=== PATIENT | male | born 1970 | race Caucasian/White ===

== ENCOUNTER 2022-10-20 00:53 | Inpatient (IN) | payer MEDICAID, OTHER ==
[~2022-10-20] VITALS: Ht 170.2 cm; Wt 171.9 kg
--- NOTE | 2022-10-20 01:10 | NUR ---
JUANY 7 FROM HOME FOR L SIDED NON- RADIATING CP 07/02 SINCE 0000.PATIENT TOOK NITRO SL AND ASA 324MG RN TRANSPORT. PATIENT IS AAOX4. ABLE TO MAKE NEEDS KNOWN. PAIN SCALE 7/10.PLACED COMFORTABLY IN BED. VITALS CHECKED.
[2022-10-20] MEDS ORDERED: KETOROLAC TROMETHAMINE INJ 30 MG/ML VIAL IV ONE (01:30)
--- NOTE | 2022-10-20 01:34 | NUR ---
IV CANNULA G20 INSERTED ON LEFT AC. BLOOD DRAWN AND SENT TO LAB
--- NOTE | 2022-10-20 01:34 | NUR ---
BLOOD DRAWN AND SENT TO LAB.
[2022-10-20] MEDS ORDERED: KETOROLAC TROMETHAMINE INJ 30 MG/ML VIAL ONE (01:37)
[2022-10-20 02:07] LABS: BASOPHILS % (AUTO) 0.2 % (0.0-2.0); HEMATOCRIT 47 % (39-51); HEMOGLOBIN 14.9 g/dL (13.5-17.5); LYMPHOCYTES # (AUTO) 1.6 K/uL (0.8-4.8); LYMPHOCYTES % (AUTO) 9.6 % (20.0-44.0); MEAN CORPUSCULAR HGB CONC 32 g/dl (31.0-36.0); MEAN CORPUSCULAR VOLUME 76 fL (80-96); MONOCYTES # (AUTO) 1.5 K/uL (0.1-1.30); MONOCYTES % (AUTO) 8.8 % (2.0-12.0); NEUTROPHILS # (AUTO) 13.6 K/uL (1.8-8.9); NEUTROPHILS % (AUTO) 80.4 % (43.0-81.0); PLATELET COUNT (AUTO) 358 K/uL (150-450); RED BLOOD CELL COUNT(AUTO) 6.21 MIL/uL (4.5-6.0)
[2022-10-20 02:20] LABS: CARBON DIOXIDE 34 mmol/L (21-32); CHLORIDE 101 mmol/L (98-107); CREATININE 0.9 mg/dL (0.6-1.3); GLUCOSE 127 mg/dL (74-106); POTASSIUM 3.8 mmol/L (3.5-5.1); SODIUM SERUM 138 mmol/L (136-145); UREA NITROGEN, BLOOD 16 mg/dL (7-18)
--- NOTE | 2022-10-20 02:26 | NUR ---
UPDATE GIVEN TO JOSIE. TO CALL FOR FF UP. [phone]
[2022-10-20 02:27] LABS: ALANINE AMINOTRANSFERASE 30 U/L (12-78); ALBUMIN 2.7 g/dL (3.4-5.0); ALKALINE PHOSPHATASE 75 U/L (46-116); ASPARTATE AMINOTRANSFERASE 16 U/L (15-37); BILIRUBIN,DIRECT 0.2 mg/dL (0.0-0.2); BILIRUBIN,TOTAL 0.7 mg/dL (0.2-1.0); TOTAL PROTEIN, SERUM 7.7 g/dL (6.4-8.2)
--- NOTE | 2022-10-20 02:34 | NUR ---
ATTACHED PATIENT TO O2 CANNULA 3LPM. PT SATS 83 ON RA. PER PATIENT, HE IS USING OXYGEN AT HOME RANJAN AT BEDTIME.
--- NOTE | 2022-10-20 02:46 | NUR ---
COVID SWAB COLLECTED AND SENT TO LAB.
[2022-10-20] MEDS ORDERED: CEFTRIAXONE 1GM BAG (ER ONLY) 1 GM/50 ML PIGGYBACK IV ONE (03:00)
[2022-10-20] MEDS ORDERED: AZITHROMYCIN 500 MG in IV D5W 250 ML IV ONE (03:00)
[2022-10-20] MEDS ORDERED: CEFTRIAXONE 1GM BAG (ER ONLY) 50 ML IV ONE (03:32)
[2022-10-20] MEDS ORDERED: AZITHROMYCIN 500 MG VIAL ONE (03:54)
[2022-10-20] MEDS ORDERED: ALBUTEROL FS 2.5 MG/0.5 ML VIAL.NEB NEB PRN (04:00)
[2022-10-20] MEDS ORDERED: MORPHINE SULFATE INJ 2 MG/ML DISP.SYRIN IV PRN (04:00)
[2022-10-20] MEDS ORDERED: ACETAMINOPHEN 325 MG TABLET PO PRN (04:00)
[2022-10-20] MEDS ORDERED: ONDANSETRON HCL/PF 4 MG/2 ML VIAL IVP PRN (04:00)
[2022-10-20] MEDS ORDERED: hydrALAZINE HCL IV 20 MG VIAL IV PRN (04:00)
[2022-10-20 04:52] LABS: BILIRUBIN,URINE 1+ (NEGATIVE); COLOR,URINE DARK YELLOW (YELLOW); LEUKOCYTE ESTERASE ,URINE NEGATIVE (NEGATIVE); NITRITE, URINE POSITIVE (NEGATIVE); PROTEIN,URINE 3+ mg/dl (NEGATIVE); UGLUCOSE NEGATIVE (NEGATIVE)
[2022-10-20 04:56] LABS: BACTERIA,URINE Few /HPF (None Seen); RBC,URINE 0-2 /HPF (0-2); SQUAMOUS EPITHELIAL CELL,UR Rare /HPF (None Seen)
[2022-10-20] MEDS ORDERED: IPRATROPIUM/ALBUTEROL INHALER IH SCH (06:00)
[2022-10-20 07:00] VITALS: BP 116/84
--- NOTE | 2022-10-20 07:54 | NUR ---
ROOM 328-1
[2022-10-20] MEDS ORDERED: FURO20TA4 PO (07:56)
[2022-10-20] MEDS ORDERED: METF-442 PO (07:56)
[2022-10-20] MEDS ORDERED: LISI10TA29 PO (07:56)
[2022-10-20] MEDS ORDERED: ISOS120T13 PO (07:56)
--- NOTE | 2022-10-20 08:00 | NUR ---
PT REPORT GIVEN TO BEBO MARIE
--- NOTE | 2022-10-20 08:21 | NUR ---
INFLUENZA SWAB TAKEN SENT TO LAB
[2022-10-20] MEDS ORDERED: ALBUTEROL FS 2.5 MG/3 ML VIAL.NEB NEB PRN (08:30)
[2022-10-20] MEDS ORDERED: CEFTRIAXONE 1 G in IV D5W 50 ML IV SCH (09:00)
[2022-10-20] MEDS ORDERED: AZITHROMYCIN 500 MG in IV D5W 250 ML IV SCH (09:00)
[2022-10-20 09:10] VITALS: BP 130/85
--- NOTE | 2022-10-20 09:10 | NUR ---
RN ADMITTING NOTES: ADMITTED A 51YO MALE PT FROM EMERGENCY ROOM, PATIENT ALERT AND ORIENTED X 4 AND ABLE TO VERBALIZED NEEDS. NO SOB OR CARDIAC NOTED ON O2 INHALATION @3LPM VIA NC AND SATURATING 98%. DENIES PAIN AT THIS TIME. IV ACCESS ON LAC GAUGE 20, PATENT AND INTACT AND FLUSHING WELL. HOOKED TO YARDAGE CALLER WITH READING SINUS 80BPM. ORIENTED TOP UNIT, STAFF AND ROOM MATE. BODY CHECK DONE: RASHES ON BACK, ANEL AND R UPPER CHEST PHOTOS TAKEN AND FILED TO PT'S CHART. VS WNL. 0950AM MORNING MEDS GIVEN AND ABLE TO SWALLOW WHOLE PILLS. SAFETY MEASURES INITIATED. 1030 AM ENDORSED TO CHRIS RN, FOR CONTINUITY OF CARE.
--- NOTE | 2022-10-20 09:10 | NUR ---
TAKEN TO ROOM SAFELY
[2022-10-20] MEDS: ASPIRIN 81 MG TAB.CHEW PO SCH (09:55)
[2022-10-20] MEDS: LISINOPRIL (10MG) 10 MG TABLET PO SCH (09:55)
[2022-10-20] MEDS: FUROSEMIDE 20 MG TABLET PO SCH (09:55)
[2022-10-20] MEDS: ISOSORBIDE MONONITRATE (30MG) 30 MG TAB.SR.24H PO SCH (09:55)
[2022-10-20] MEDS: DEXAMETHASONE SOD PHOSPHATE 10 MG/ML VIAL IV SCH (09:59)
[2022-10-20] MEDS: METFORMIN 500 MG TABLET PO SCH ×2 (09:59→16:52)
[2022-10-20] MEDS: HEPARIN SODIUM, PORCINE 5000 UNITS/1 ML VIAL SQ SCH ×2 (10:09→21:11)
--- NOTE | 2022-10-20 10:25 | NUR ---
RN NOTES: A 51YO MALE PT FROM MED SURG UNIT VIA WHEELCHAIR, PATIENT ALERT AND ORIENTED X 4 AND ABLE TO VERBALIZED NEEDS. NO SOB OR CHEST PAIN AT THIS TIME NOTED ON O2 INHALATION @2LPM VIA NC AND SATURATING 97%. DENIES PAIN AT THIS TIME. IV ACCESS ON LAC GAUGE 20, PATENT AND INTACT AND FLUSHING WELL. HOOKED TO CONTRACT DRIVER WITH READING SINUS. ORIENTED TO UNIT, STAFF. BODY CHECK DONE: RASHES ON BACK, ANEL AND R UPPER CHEST PHOTOS TAKEN AND FILED TO PT'S CHART. VS CHECKED BP 135/85 TEMP 99.4,PULSE 95, RR 20 O2 SAT 97%, WILL MONITOR
[2022-10-20 11:54] LABS: ABG BASE EXCESS 1.9 mmol/L; ABG OXYGEN SATURATION 94.6 % (92.0-98.5); ABG PCO2 51.4 mmHg (35.0-45.0); COHb 1.4 % (0.5-1.5); MetHb 0.3 % (0.0-1.5); SITE, ABG Right Radial; VENT MODE, BG NC 2L
[2022-10-20 12:00] VITALS: BP 135/85
[2022-10-20] MEDS: ALBUTEROL FS 2.5 MG/0.5 ML VIAL.NEB NEB SCH ×2 (13:25→20:51)
[2022-10-20] MEDS: IPRATROPIUM NEB FS 0.5 MG/2.5 ML AMPUL.NEB NEB SCH ×2 (13:25→20:51)
[2022-10-20 16:00] VITALS: BP 114/60
[2022-10-20] MEDS ORDERED: DEXTROSE 50%-WATER 50 ML DISP.SYRIN IV PRN (17:00)
[2022-10-20] MEDS ORDERED: *INSULIN REGULAR(HUMULIN R)HUM 100 UNIT/ML VIAL SQ PRN (17:00)
[2022-10-20] MEDS: BLOOD SUGAR DIAGNOSTIC 1 EACH STRIP IN SCH ×2 (17:14→21:49)
[2022-10-20] MEDS: INSULIN REGULAR, HUMAN 100 UNIT/ML 3 ML VIAL SQ PRN (17:48)
--- NOTE | 2022-10-20 19:20 | NUR ---
INTERMEDIATE FRAME TENDER CLOSING NOTES: PATIENT ALERT AND ORIENTED X 4 AND ABLE TO VERBALIZED NEEDS. NO SOB OR CHEST PAIN AT THIS TIME NOTED ON O2 INHALATION @2LPM VIA NC AND SATURATING ABOVE 96%. DENIES PAIN AT THIS TIME. IV ACCESS ON LAC GAUGE 20, PATENT AND INTACT AND FLUSHING WELL. HOOKED TO SITE SAFETY REPRESENTATIVE WITH READING SINUS. endorsed to material handler 1st shift for day
--- NOTE | 2022-10-20 19:20 | NUR ---
VP CLINICAL RESEARCH OPENING NOTES: RECEIVED PATIENT A/O X 4 AND ABLE TO VERBALIZED NEEDS. NO SOB OR CHEST PAIN AT THIS TIME NOTED ON O2 INHALATION @2LPM VIA NC AND SATURATING ABOVE 96%. DENIES PAIN AT THIS TIME. IV ACCESS ON LAC GAUGE 20, PATENT AND INTACT AND FLUSHING WELL. TELE MONITOR READING SR. WILL CONTINUE TO MONITOR THROUGHOUT SHIFT FOR KYREE.
[2022-10-20 20:00] VITALS: BP 133/77
[2022-10-21] VITALS: BP 140/80
[2022-10-21] MEDS: ALBUTEROL FS 2.5 MG/0.5 ML VIAL.NEB NEB SCH ×3 (02:17→14:14)
[2022-10-21] MEDS: IPRATROPIUM NEB FS 0.5 MG/2.5 ML AMPUL.NEB NEB SCH ×3 (02:17→14:14)
[2022-10-21] MEDS ORDERED: ZITHROMAX 500 MG/250 ML D5W IV SCH ×2 (03:00)
[2022-10-21] MEDS ORDERED: CEFTRIAXONE 1 G in IV D5W 50 ML IV SCH (03:00)
[2022-10-21 04:00] VITALS: BP 117/79
--- NOTE | 2022-10-21 07:11 | NUR ---
VENEER GLUER CLOSING NOTES: PATIENT A/O X 4 AND ABLE TO VERBALIZED NEEDS. NO SOB OR CHEST PAIN AT THIS TIME NOTED ON O2 INHALATION @2LPM VIA NC AND SATURATING ABOVE 96%. DENIES PAIN AT THIS TIME. IV ACCESS ON LAC GAUGE 20, PATENT AND INTACT AND FLUSHING WELL. TELE MONITOR READING SR. WILL ENDORSE TO MORNING SHIFT FOR KYREE.
--- NOTE | 2022-10-21 07:20 | NUR ---
IRON MOLDER HELPER OPENING NOTES: PATIENT A/O X 4 AND ABLE TO VERBALIZED NEEDS. NO SOB OR CHEST PAIN AT THIS TIME.NOTED ON O2 @2LPM VIA NC AND SATURATING At 94%%. pt is ambulatory.DENIES PAIN AT THIS TIME. IV ACCESS ON R hand GAUGE 20, PATENT AND INTACT AND FLUSHING WELL. TELE MONITOR READING SR. all safety measures in place. call light within reach. bed locked at lowest position. side rails up x2.
[2022-10-21 07:50] LABS: BASOPHILS % (AUTO) 0.1 % (0.0-2.0); HEMATOCRIT 43 % (39-51); HEMOGLOBIN 13.6 g/dL (13.5-17.5); LYMPHOCYTES # (AUTO) 1.1 K/uL (0.8-4.8); MEAN CORPUSCULAR HGB CONC 32 g/dl (31.0-36.0); MEAN CORPUSCULAR VOLUME 76 fL (80-96); MONOCYTES % (AUTO) 5.5 % (2.0-12.0); NEUTROPHILS # (AUTO) 15.6 K/uL (1.8-8.9); NEUTROPHILS % (AUTO) 88.4 % (43.0-81.0); PLATELET COUNT (AUTO) 411 K/uL (150-450); RED BLOOD CELL COUNT(AUTO) 5.65 MIL/uL (4.5-6.0); WHITE BLOOD COUNT (AUTO) 17.6 K/uL (4.3-11.0)
[2022-10-21 08:00] VITALS: BP 122/63
[2022-10-21] MEDS: BLOOD SUGAR DIAGNOSTIC 1 EACH STRIP IN SCH ×2 (08:04→12:06)
[2022-10-21] MEDS: DEXAMETHASONE SOD PHOSPHATE 10 MG/ML VIAL IV SCH (08:39)
[2022-10-21] MEDS: ASPIRIN 81 MG TAB.CHEW PO SCH (08:40)
[2022-10-21] MEDS: METFORMIN 500 MG TABLET PO SCH (08:40)
[2022-10-21] MEDS: ISOSORBIDE MONONITRATE (30MG) 30 MG TAB.SR.24H PO SCH ×2 (08:40→09:23)
[2022-10-21] MEDS: HEPARIN SODIUM, PORCINE 5000 UNITS/1 ML VIAL SQ SCH (08:54)
[2022-10-21] MEDS: INSULIN REGULAR, HUMAN 100 UNIT/ML 3 ML VIAL SQ PRN ×2 (08:54→12:08)
[2022-10-21 09:03] LABS: BILIRUBIN,TOTAL 0.3 mg/dL (0.2-1.0); CREATININE 0.9 mg/dL (0.6-1.3); PHOSPHORUS 3.3 mg/dL (2.5-4.9); POTASSIUM 4.2 mmol/L (3.5-5.1); TOTAL PROTEIN, SERUM 7.7 g/dL (6.4-8.2)
[2022-10-21] MEDS: LISINOPRIL (10MG) 10 MG TABLET PO SCH (09:12)
[2022-10-21] MEDS: FUROSEMIDE 20 MG TABLET PO SCH (09:13)
[2022-10-21 09:56] LABS: ALBUMIN 2.3 g/dL (3.4-5.0)
[2022-10-21 12:00] VITALS: BP 129/72
[2022-10-21 12:06] LABS: *SPE A/G RATIO 0.7 (0.7-1.7); *SPE ALPHA-1-GLOBULIN 0.5 g/dL (0.0-0.4); *SPE ALPHA-2-GLOBULIN 1.1 g/dL (0.4-1.0); *SPE BETA GLOBULIN 1.3 g/dL (0.7-1.3); *SPE M-SPIKE Not Observed g/dL (Not Observed)
[2022-10-21] MEDS ORDERED: GUAI-671 PO (12:46)
[2022-10-21] MEDS ORDERED: LEVO750T46 PO (12:46)
--- NOTE | 2022-10-21 14:41 | NUR ---
field return repairer note pt discharged. provided discharge instructions.pt verbalized understanding.pt picked up family member and escorted by wheelchair to lobby.pt stable condition. removed iv and tele monitor. pt discharged with pt belongings
[2022-10-22 21:06] LABS: *MYCOPLASMA PNEUMONIAE IgG 656 U/mL (0-99); *MYCOPLASMA PNEUMONIAE IgM <770 U/mL (0-769)
== END 2022-10-21 14:55 | disposition home or self-care (01) | DRG 139 ==
LOC: ER 00:57 → TELE 08:00 → TELE1 10:18 → MEDSG1 10-21 08:52
PROVIDERS: ADMIT Nurse Practitioner Acute Care; ATTEND Nurse Practitioner Acute Care
DX: J15.9 Unspecified bacterial pneumonia (principal); E87.29 Other acidosis; D68.69 Other thrombophilia; J44.0 Chronic obstructive pulmonary disease with (acute) lower respiratory infection; E66.2 Morbid (severe) obesity with alveolar hypoventilation; Z99.81 Dependence on supplemental oxygen; E11.65 Type 2 diabetes mellitus with hyperglycemia; D72.829 Elevated white blood cell count, unspecified; N39.0 Urinary tract infection, site not specified; Z20.822 Contact with and (suspected) exposure to COVID-19; Z86.16 Personal history of COVID-19; Z87.891 Personal history of nicotine dependence; R07.89 Other chest pain; R91.8 Other nonspecific abnormal finding of lung field; Z68.43 Body mass index [BMI] 50.0-59.9, adult; Z79.84 Long term (current) use of oral hypoglycemic drugs; Z71.3 Dietary counseling and surveillance; I10 Essential (primary) hypertension; Z74.09 Other reduced mobility
CPT/HCPCS: 36415; 36600; 71045-TC; 71250-TC; 80048-TC; 80053-TC; 80076-TC; 81001; 82803-TC; 82962-TC; 83605-TC; 83735-TC; 84100-TC; 84155; 84165; 84484-TC; 85025-TC; 85730-TC; 86713; 86738; 87040-TC; 87081-TC; 87086-TC; 87449; 93307-TC; 94799-TC; C9803; G0378; J0456; J0696; J1100; J1644; J1815; J1885; J7050; J7060; U0003